=== PATIENT | male | born 1975 | race American Indian/Alaskan Native ===

== ENCOUNTER 2022-06-05 17:46 | Emergency (ER) | payer SELFPAY ==
[2022-06-05 18:09] VITALS: BP 131/80
== END 2022-06-06 08:30 | disposition left against medical advice (07) ==
LOC: ED 17:46
DX: M54.9 Dorsalgia, unspecified (principal); M79.673 Pain in unspecified foot; Z53.21 Procedure and treatment not carried out due to patient leaving prior to being seen by health care provider